=== PATIENT | male | born 1945 | race Caucasian/White ===

== ENCOUNTER → 2016-07-18 | Outpatient (CLI) | payer MEDICARE, BC ==
[~2016-07-18] MED LIST: ACIPHEX20 MG PO; AMBIEN 10MG10 MG PO; AMOXICILLIN 8751 TAB PO; LOPRESSOR50 MG PO; TAMBOCOR150 MG PO; TOPROL XL 25MG25 MG PO
== END ==
LOC: COL.RAD 07:42
DX: D64.9 Anemia, unspecified (principal)

== ENCOUNTER 2022-05-02 07:14 | Day surgery (SDC) | payer MEDICARE, BC ==
[~2022-05-02] VITALS: Ht 175.3 cm; Wt 74.5 kg
[2022-05-02 07:50] VITALS: BP 139/76; PULSE 52; TEMP 97.7
[2022-05-02] MEDS ORDERED: TAMBOCOR 1100 MG/TAB PO (07:53)
[2022-05-02] MEDS ORDERED: LOPRESSOR 225 MG/TAB PO (07:54)
[2022-05-02] MEDS ORDERED: DESYREL 50MG50 MG PO (07:54)
[2022-05-02] MEDS ORDERED: CENTRUM MEN'S PO (07:55)
[2022-05-02] MEDS ORDERED: ASPIRIN 81M81 MG/TA2 PO (07:55)
[2022-05-02] MEDS ORDERED: CIALIS5 MG PO (07:56)
[2022-05-02 09:10] VITALS: BP 117/75; PULSE 48
--- NOTE | 2022-05-02 09:20 | NUR ---
0910 - PT arrives from procedure and was settled by Aleida MORTENSEN. 09 - Written report obtained. PT is sitting comfortably in chair; denies pain/nausea and continues to drink/eat. PT tolerating well and is A&Ox3. PT expressed desire to be discharged. Awaiting DR to speak w/ PT. Call mon within reach and non-slip socks remain on. Will monitor per intervals. Visitor remains present.
[2022-05-02 09:25] VITALS: BP 120/71; PULSE 48; TEMP 97.5
[2022-05-02 09:40] VITALS: BP 128/67; PULSE 50
--- NOTE | 2022-05-02 09:45 | NUR ---
0925 - VSS. Call mon within reach if needed. PT resting in chair. 0940 - VSS. IV and monitors discontinued. Catheter tip intact and pressure bandage applied. NO redness or swelling noted. DC instructions and educational material reviewed w/ PT who verbalized understanding and signed the related paperwork. Questions answered to PT satisfaction. is in to speak w/ PT. 0945 - PT is changing into personal clothes w/ assistance from his , call mon remains within reach and non-slip socks are on. PT refused RN assistance changing.
--- NOTE | 2022-05-02 10:03 | NUR ---
1000 - PT dismissed from endo via wheelchair to the PT entrence by Minnie MORTENSEN. PT has DC packet and personal belongings and was transferred into the care of his , who is driving private car.
== END 2022-05-02 10:05 | disposition home or self-care (01) ==
LOC: SDCO 07:14
DX: Z12.11 Encounter for screening for malignant neoplasm of colon (principal); D12.2 Benign neoplasm of ascending colon; K64.0 First degree hemorrhoids; K57.30 Diverticulosis of large intestine without perforation or abscess without bleeding
CPT/HCPCS: J2704; J7120